=== PATIENT | female | born 1950 | race Caucasian/White ===

== ENCOUNTER 2019-08-28 16:51 | Emergency (ER) | payer MEDICARE ==
[2019-08-28 17:07] VITALS: BP 162/96
--- NOTE | 2019-08-28 17:46 | UC ---
UC General HPI - HPI Summary HPI Summary: patient had normal BM this am, then had 3 bouts bloody diarrhea this afternoon, no abd pain except for cramping before BM. had normal colonoscopy 2-3 years ago and has had bleeding from hemorrhoid in past but this is much more volume than she would expect. Pt presents stool specimen in plastic container collected at home (dark red liquid stool) no recent travel or illness, no recent antibiotics - History of Current Complaint Chief Complaint: UCGI Stated Complaint: RECTAL BLEEDING Time Seen by Provider: 08/28/19 17:26 Hx Obtained From: Patient Onset/Duration: Sudden Onset Onset Severity: Mild Current Severity: Mild Pain Intensity: 2 Associated Signs & Symptoms: Positive: Diarrhea. Negative: Abdominal Pain - except slight cramping before diarrhea, Back Pain, Diaphoresis, Fever, Headache , Nausea, Vomiting, Weakness - Allergy/Home Medications Allergies/Adverse Reactions: Allergies Allergy/AdvReac Type Severity Reaction Status Date / Time aspirin Allergy Unknown Verified 08/28/19 17:08 Reaction Details meperidine Allergy Unknown Verified 08/28/19 17:08 Reaction Details PMH/Surg Hx/FS Hx/Imm Hx Previously Healthy: Yes Psychological History: Depression - Surgical History Surgical History: Yes - hysterectomy Surgery Procedure, Year, and Place: leg vein - Family History Known Family History: Positive: Non-Contributory - Social History Occupation: Retired Lives: With Family Alcohol Use: None Substance Use Type: None Smoking Status (MU): Never Smoked Tobacco Review of Systems All Other Systems Reviewed And Are Negative: Yes Constitutional: Positive: Negative Skin: Positive: Negative Respiratory: Positive: Negative Cardiovascular: Positive: Negative Gastrointestinal: Positive: Diarrhea Genitourinary: Positive: Negative. Negative: Dysuria, Hematuria, Frequency, Vaginal/Penile Burning, Vaginal/Penile Discharge, Abnormal Bleeding Neurological: Positive: Negative Psychological: Positive: Negative Is Patient Immunocompromised?: No Physical Exam Triage Information Reviewed: Yes Appearance: Well-Appearing, No Pain Distress, Well-Nourished Vital Signs: Initial Vital Signs Temp 97.7 F 08/28/19 17:02 Pulse 60 08/28/19 17:02 Resp 16 08/28/19 17:02 BP 162/96 08/28/19 17:02 Pulse Ox 99 08/28/19 17:02 Vital Signs Reviewed: Yes Respiratory Exam: Normal Respiratory: Positive: Lungs clear Cardiovascular Exam: Normal Cardiovascular: Positive: RRR Abdominal Exam: Normal Abdomen Description: Positive: Nontender, No Organomegaly, Soft, Other: - small non-bleeding external hemorrhoid identified on exam. rectal exam reveals no blood, no mass, no lesions. Negative: CVA Tenderness (R), CVA Tenderness (L) Bowel Sounds: Positive: Present Neurological Exam: Normal Neurological: Positive: Alert Psychological Exam: Normal Skin Exam: Normal Skin: Negative: Rashes Course/Dx - Course Course Of Treatment: occult blood test negative - Differential Dx - Multi-Symptom Differential Diagnoses: Other - GI bleed, infectious colitis, bleeding hemorrhoid - Diagnoses Provider Diagnosis: Diarrhea Discharge ED - Sign-Out/Discharge Documenting (check all that apply): Patient Departure All imaging exams completed and their final reports reviewed: No Studies - Discharge Plan Condition: Good Disposition: HOME Patient Education Materials: Acute Diarrhea (ED) Referrals: Gregory Franks MD [Primary Care Provider] - 2 Days (recheck blood pressure) Additional Instructions: drink plenty of fluids, avoid caffeine and eat bland diet for 48 hours If you experience abdominal pain, fever or new symptoms please report to ER - Billing Disposition and Condition Condition: GOOD Disposition: Home - Attestation Statements Provider Attestation: Per institutional requirements, I have reviewed the chart, however, I was not consulted specifically or made aware of this patient by the midlevel provider. I did not personally evaluate, interact with , or disposition this patient.
--- NOTE | 2019-08-29 14:58 | UC ---
- Progress Note Progress Note: Stool neg c dif, neg 027 no change ljj 08/29/19 Course/Dx - Diagnoses Provider Diagnoses: Diarrhea Discharge ED - Sign-Out/Discharge Documenting (check all that apply): Post-Discharge Follow Up All imaging exams completed and their final reports reviewed: No Studies - Discharge Plan Condition: Good Disposition: HOME Patient Education Materials: Acute Diarrhea (ED) Referrals: Gregory Franks MD [Primary Care Provider] - 2 Days (recheck blood pressure) Additional Instructions: drink plenty of fluids, avoid caffeine and eat bland diet for 48 hours If you experience abdominal pain, fever or new symptoms please report to ER - Billing Disposition and Condition Condition: GOOD Disposition: Home
== END 2019-08-28 18:40 | disposition home or self-care (01) ==
LOC: UCEAST 16:51
DX: R19.7 Diarrhea, unspecified (principal); K62.5 Hemorrhage of anus and rectum; Z88.6 Allergy status to analgesic agent; Z88.5 Allergy status to narcotic agent
CPT/HCPCS: 82272; 87045; 87046; 87328; 87329; 87493; 87899; 99211; G0463

== ENCOUNTER 2021-03-19 13:58 | Inpatient (IN) ==
[2021-03-19] MEDS ORDERED: Amiodarone IV 150 mg/3 ml VIAL ONE (14:09)
[2021-03-19] MEDS ORDERED: EPINEPHrine SYR 0.1MG/ML 10 ml SYRINGE ONE ×4 (14:09→15:01)
[2021-03-19] MEDS ORDERED: Sodium Bicarbonate 8.4% SYR 50 ml SYRINGE ONE ×2 (14:13→14:36)
[2021-03-19 14:49] LABS: Hematocrit 38 % (35-47); Hemoglobin 12.6 g/dL (12.0-16.0); Mean Corpuscular HGB Conc 33 g/dL (31-36); Mean Corpuscular Hemoglobin 32 pg (27-31); Mean Corpuscular Volume 97 fL (80-97); Mean Platelet Volume 8.4 fL (7.4-10.4); Platelet Count 117 10^3/uL (150-450); Red Blood Count 3.91 10^6 /uL (3.70-4.87); Red Cell Distribution Width 14 % (10-15); White Blood Count 6.8 10^3/uL (3.5-10.8)
[2021-03-19 14:57] LABS: Activated Partial Thrombo Time 63.1 seconds (26.0-38.0); INR 1.29 (0.82-1.09)
[2021-03-19 15:08] LABS: ALT 286 U/L (7-52); Albumin 2.6 g/dL (3.2-5.2); Albumin/Globulin Ratio 1.4 (1-3); Alkaline Phosphatase 64 U/L (35-149); Blood Urea Nitrogen 12 mg/dL (6-24); CO2 Carbon Dioxide 21 mmol/L (22-32); Calcium 7.5 mg/dL (8.6-10.3); Chloride 103 mmol/L (101-111); EGFR African American 74.9 (>60); EGFR Non-African American 61.9 (>60); Globulin 1.8 g/dL (2-4); Glucose 329 mg/dL (70-100); Magnesium 2.3 mg/dL (1.9-2.7); Sodium 145 mmol/L (135-145); Total Protein 4.4 g/dL (6.4-8.9)
[2021-03-19 15:13] LABS: Troponin I 0.11 ng/mL (<0.03)
[2021-03-19 15:14] LABS: Anion Gap 21 mmol/L (2-11)
[2021-03-19 17:12] LABS: ABS Basophils 0.1 10^3/ul (0-0.2); ABS Eosinophils 0.1 10^3/ul (0-0.6); ABS Lymphocytes 4.4 10^3/ul (1.0-4.8); ABS Monocytes 0.2 10^3/ul (0-0.8); ABS Neutrophils 11.5 10^3/ul (1.5-7.7); Eosinophil % 0.7 %; Hematocrit 35 % (35-47); Mean Corpuscular HGB Conc 32 g/dL (31-36); Mean Corpuscular Hemoglobin 32 pg (27-31); Mean Corpuscular Volume 100 fL (80-97); Mean Platelet Volume 7.3 fL (7.4-10.4); Nucleated Red Blood Cells % 0.1; Platelet Count 103 10^3/uL (150-450); Red Blood Count 3.47 10^6 /uL (3.70-4.87); Red Cell Distribution Width 14 % (10-15); White Blood Count 16.2 10^3/uL (3.5-10.8)
[2021-03-19 17:30] LABS: ALT 289 U/L (7-52); Albumin 2.2 g/dL (3.2-5.2); Albumin/Globulin Ratio 1.3 (1-3); Alkaline Phosphatase 70 U/L (35-149); Blood Urea Nitrogen 13 mg/dL (6-24); CO2 Carbon Dioxide 18 mmol/L (22-32); Calcium 7.1 mg/dL (8.6-10.3); Chloride 104 mmol/L (101-111); EGFR Non-African American 49.6 (>60); Globulin 1.7 g/dL (2-4); Sodium 140 mmol/L (135-145); Total Protein 3.9 g/dL (6.4-8.9)
[2021-03-19] MEDS ORDERED: Piperacillin/Tazobac ADVAN 3.375 GM in NS 0.9% 100 ml BAG 100 ML IV ONE (17:30)
[2021-03-19 17:37] LABS: Glucose 537 mg/dL (70-100); Troponin I 2.25 ng/mL (<0.03)
[2021-03-19 17:38] LABS: Anion Gap 18 mmol/L (2-11)
[2021-03-19 17:40] LABS: ABS Basophils 0.1 10^3/ul (0-0.2); ABS Eosinophils 0.1 10^3/ul (0-0.6); ABS Lymphocytes 5.1 10^3/ul (1.0-4.8); ABS Monocytes 0.2 10^3/ul (0-0.8); ABS Neutrophils 1.4 10^3/ul (1.5-7.7); Eosinophil % 1.1 %; Lymphocyte % 74.6 %; Nucleated Red Blood Cells % 0.4
[2021-03-19] MEDS ORDERED: Dextrose 50% Syringe 50 ml 25 GM/50 ML SYRINGE IV PUSH PRN (17:41)
[2021-03-19] MEDS ORDERED: Zosyn per Pharmacy NOTE FOLLOW UP SCH (18:00)
[2021-03-19 18:03] LABS: AST Redraw 331 U/L (13-39); Potassium Redraw 3.6 mmol/L (3.5-5.0)
[2021-03-19 18:13] LABS: Glucose Confirmatory 501 mg/dL (70-100)
[2021-03-19] MEDS: Norepinephrine 16MCG/ML IVPRE 4,000 MCG/250 ML BAG IV SCH ×4 (18:34→22:51)
[2021-03-19] MEDS: Chlorhexidine MOUTHWASH 0.12% 15 ML UDC SWISH SPIT SCH ×2 (18:34→22:34)
[2021-03-19] MEDS ORDERED: Insulin GLARGINE 100 un/ml 10 ml VIAL SUBCUT ONE (18:35)
[2021-03-19] MEDS: Pantoprazole VIAL 40 MG VIAL IV SCH (19:11)
[2021-03-19] MEDS: NORMOSOL-R pH 7.4 1000 mL BAG 1,000 ML IV SCH (19:54)
[2021-03-19] MEDS ORDERED: Magnesium Sulfate 2 gm BAG 2 GM/50 ML BAG IVPB ONE (21:29)
[2021-03-19] MEDS ORDERED: DOBUTamine 2000 MCG/ML IVPREMX 500 MG/250 ML BAG IV ONE (21:35)
[2021-03-19] MEDS ORDERED: DOBUTamine 2000 MCG/ML IVPREMX 500 MG/250 ML BAG IV SCH (22:00)
[2021-03-20] MEDS: Norepinephrine 16MCG/ML IVPRE 4,000 MCG/250 ML BAG IV SCH (00:20)
[2021-03-20 00:23] LABS: Troponin I 14.88 ng/mL (<0.03)
[2021-03-20] MEDS: ZOSYN 3.375 GM Q8H per EXTENDED INFUSION IV SCH ×2 (00:43→07:41)
[2021-03-20] MEDS: Norepinephrine IV 8 MG in NS 0.9% 500 ml BAG 492 ML IV SCH ×2 (01:44→05:05)
[2021-03-20] MEDS: Chlorhexidine MOUTHWASH 0.12% 15 ML UDC SWISH SPIT SCH ×3 (01:51→09:47)
[2021-03-20] MEDS: NORMOSOL-R pH 7.4 1000 mL BAG 1,000 ML IV SCH (02:23)
[2021-03-20 04:27] LABS: Hematocrit 41 % (35-47); Hemoglobin 13.6 g/dL (12.0-16.0); Mean Corpuscular HGB Conc 33 g/dL (31-36); Mean Corpuscular Hemoglobin 32 pg (27-31); Mean Corpuscular Volume 96 fL (80-97); Mean Platelet Volume 7.8 fL (7.4-10.4); Platelet Count 157 10^3/uL (150-450); Red Cell Distribution Width 14 % (10-15); White Blood Count 21.6 10^3/uL (3.5-10.8)
[2021-03-20 04:48] LABS: Calcium 7.2 mg/dL (8.6-10.3); EGFR African American 34.5 (>60); EGFR Non-African American 28.5 (>60); Potassium 3.3 mmol/L (3.5-5.0)
[2021-03-20] MEDS: KCL 10 MEQ/50 ML IVPREMIX 10 MEQ/50 ML BAG IV SCH ×3 (05:45→09:47)
[2021-03-20 05:50] LABS: ABS Monocytes 0.9 10^3/ul (0-0.8); ABS Neutrophils 19.7 10^3/ul (1.5-7.7); Eosinophil % 0.1 %; Lymphocyte % 4.5 %; Nucleated Red Blood Cells % 0.1
[2021-03-20] MEDS: Pantoprazole VIAL 40 MG VIAL IV SCH (07:41)
[2021-03-20] MEDS ORDERED: DOBUTamine 2000 MCG/ML IVPREMX 500 MG/250 ML BAG IV SCH (08:02)
[2021-03-20] MEDS ORDERED: Lorazepam PYXIS KEY ONE (10:01)
[2021-03-20] MEDS ORDERED: LORazepam 2 mg VIAL 1 ml ONE (10:01)
[2021-03-20] MEDS ORDERED: Morphine 2 MG/ML SYRINGE ONE (10:01)
[2021-03-20] MEDS ORDERED: Morphine 2 MG/ML SYRINGE IV PRN (10:12)
[2021-03-20] MEDS ORDERED: Lorazepam PYXIS KEY PRN (10:12)
[2021-03-20] MEDS ORDERED: LORazepam 2 mg VIAL 1 ml IV PUSH ONE (10:12)
[2021-03-20 10:20] VITALS: BP 39/26
== END 2021-03-20 10:30 | disposition expired | DRG 308 ==
LOC: ED 13:58 → ICU 16:06
PROVIDERS: ADMIT Internal Medicine; ATTEND Internal Medicine